=== PATIENT | male | born 1975 | race Caucasian/White ===

== ENCOUNTER 2017-01-19 16:23 | Emergency (ER) | payer BC ==
[~2017-01-19] VITALS: Ht 190.5 cm; Wt 113.4 kg
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
[2017-01-19] MEDS ORDERED: LIDOCAINE HCL/PF 1% 30 ML VIAL TP ONE (17:00)
[2017-01-19 17:37] VITALS: BP 112/73
--- NOTE | 2017-01-19 17:38 | NUR ---
Patient discharged to home in stable condition. Written and verbal after care instructions given. Patient verbalizes understanding of instruction.
== END 2017-01-19 17:42 | disposition home or self-care (01) ==
LOC: ER 16:26
DX: S01.81XA Laceration without foreign body of other part of head, initial encounter (principal); F17.200 Nicotine dependence, unspecified, uncomplicated; W01.198A Fall on same level from slipping, tripping and stumbling with subsequent striking against other object, initial encounter; Y93.89 Activity, other specified; Y92.89 Other specified places as the place of occurrence of the external cause; Y99.9 Unspecified external cause status
CPT/HCPCS: 12013; 99283; A4606; J3490; Z7610